=== PATIENT | male | born 1975 | race Caucasian/White ===

== ENCOUNTER 2025-02-18 15:16 | Emergency (ER) | payer MEDICAID, OTHER ==
[~2025-02-18] VITALS: Ht 167.6 cm; Wt 75.0 kg
[2025-02-18 15:20] VITALS: O2SAT 99
[2025-02-18 16:50] LABS: BASOPHILS % 0.9 % (0.0-2.0); EOSINOPHILS % 0.3 % (0.0-5.0); HEMATOCRIT. 43.2 % (42.0-52.0); HEMOGLOBIN. 14.2 g/dL (14.0-18.0); LYMPHOCYTES % 13.4 % (20.0-50.0); MEAN CORPUSCULAR HGB CONC 32.9 g/dL (31.0-37.0); MEAN CORPUSCULAR VOLUME 88.3 fL (80.0-94.0); MEAN PLATELET VOLUME 8.2 fl (7.4-10.4); MONOCYTES % 6.8 % (2.0-8.0); NEUTROPHILS % 78.6 % (40.0-76.0); PLATELET 286 x1000/uL (130-400); RED BLOOD CELL COUNT 4.89 mill/uL (4.7-6.1); RED CELL DISTRIBUTION WIDTH 15.2 % (11.6-14.6); WHITE BLOOD COUNT 10.2 x1000/uL (4.5-11.0)
[2025-02-18 16:53] LABS: CHLORIDE 99 mEq/L (98-107); POTASSIUM 3.4 mEq/L (3.5-5.1); SODIUM 137 mEq/L (136-145)
[2025-02-18 16:54] LABS: CALCIUM 9.4 mg/dL (8.7-10.4); CARBON DIOXIDE 23 mEq/L (21-32)
[2025-02-18 16:58] LABS: CREATININE 0.9 mg/dL (0.6-1.3); PARTIAL THROMBOPLASTIN TIME 27.7 sec (23.4-31.0); PROTHROMBIN TIME 10.3 sec (9.6-11.0)
[2025-02-18 16:59] LABS: GLUCOSE 102 mg/dL (70-105); UREA NITROGEN BLOOD 13 mg/dL (9-23)
[2025-02-18 17:00] LABS: TROPONIN I HIGH SENSITIVITY 23 ng/L (3.0-53)
[2025-02-18] MEDS: ASPIRIN 81MG TABLET PO ONE (19:01)
[2025-02-18] MEDS: NITROGLYCERIN 0.4MG TABLET SL SL ONE (19:01)
[2025-02-18] MEDS ORDERED: MORPHINE SULFATE 2 MG/ML INJ (NOT FOR IM USE) IV PRN (19:15)
[2025-02-18] MEDS ORDERED: IPRATROPIUM/ALBUTEROL 0.5-3(2.5)MG/3ML NEB NEB PRN (19:15)
[2025-02-18] MEDS ORDERED: NALOXONE HCL 0.4MG/ML VIAL IV PRN (19:15)
[2025-02-18] MEDS ORDERED: HYDROCODONE/ACETAMINOPHEN 5/325MG TABLET PO PRN (19:15)
[2025-02-18] MEDS ORDERED: ACETAMINOPHEN 325MG TABLET PO PRN (19:15)
[2025-02-18] MEDS ORDERED: CLONIDINE 0.1MG TABLET PO PRN (19:15)
[2025-02-18] MEDS ORDERED: ONDANSETRON HCL 4MG/2ML INJ IV PRN (19:15)
[2025-02-18 19:49] LABS: TROPONIN I HIGH SENSITIVITY 21 ng/L (3.0-53)
[2025-02-18] MEDS ORDERED: ENOXAPARIN 40MG/0.4ML SYR SUBCUT SCH (20:00)
[2025-02-18 20:16] VITALS: BP 159/74; PULSE 67; RESP 22; TEMP 37.1; O2SAT 99
[2025-02-18] MEDS ORDERED: ZOLPIDEM TARTRATE 5MG TABLET PO PRN (21:00)
[2025-02-19] MEDS ORDERED: PANTOPRAZOLE SODIUM 40 MG/VIAL IV SCH (09:00)
[2025-02-19] MEDS ORDERED: ASPIRIN 81MG TABLET PO SCH (09:00)
== END 2025-02-18 20:36 | disposition short-term general hospital (02) ==
LOC: ER 15:16
DX: R07.89 Other chest pain (principal); R91.8 Other nonspecific abnormal finding of lung field; E78.00 Pure hypercholesterolemia, unspecified; I10 Essential (primary) hypertension; Z79.899 Other long term (current) drug therapy; Z79.82 Long term (current) use of aspirin
CPT/HCPCS: 80048; 83880; 85025; 85610; 85730; 84484; 36415; 71045; 93005; 99285; Z7610